=== PATIENT | male | born 1985 | race Two or more races ===

== ENCOUNTER 2025-05-29 19:11 | Emergency (ER) | payer OTHER ==
[2025-05-29] MEDS: Diphtheria,Pertussis(Acell),Tetanus Vaccine 0.5 ML Syringe IM ONE (20:33)
== END 2025-05-29 20:35 | disposition home or self-care (01) ==
LOC: JD.ED 19:11
DX: S61.217A Laceration without foreign body of left little finger without damage to nail, initial encounter (principal); W26.0XXA Contact with knife, initial encounter; Z23 Encounter for immunization
CPT/HCPCS: 12001; 90471; 90715; 99282; 99282-25